=== PATIENT | female | born 1950 | race African-American/Black ===

== ENCOUNTER 2016-05-12 13:11 | Emergency (ER) | payer MEDICARE, OTHER ==
[~2016-05-12] VITALS: Ht 157.5 cm; Wt 76.8 kg
[~2016-05-12 13:11] MED LIST: NOCURR
[2016-05-12 13:36] LABS: GLUCOSE,POINT OF CARE 80 MG/DL (70-110)
[2016-05-12] MEDS ORDERED: MONT10TA24 PO (13:46)
[2016-05-12] MEDS ORDERED: RIVA20TA PO (13:46)
[2016-05-12] MEDS ORDERED: METO25 PO (13:46)
[2016-05-12] MEDS ORDERED: METF500T4 PO (13:46)
[2016-05-12] MEDS ORDERED: NITR.4 SL (13:46)
[2016-05-12] MEDS ORDERED: OXYB5 PO (13:46)
[2016-05-12] MEDS ORDERED: OMEP20CA10 PO (13:46)
[2016-05-12] MEDS ORDERED: SIMV20TA6 PO (13:46)
[2016-05-12 14:15] LABS: BASOPHILS % (AUTO) 0.4 % (0.0-2.0); EOSINOPHILS % (AUTO) 4.3 % (1.0-6.0); HEMOGLOBIN 12.8 g/dL (12.0-16.0); LYMPHOCYTES # (AUTO) 1.7 K/uL (1.0-4.8); LYMPHOCYTES % (AUTO) 30.1 % (22.0-44.0); MEAN CORPUSCULAR HGB CONC 31.1 G/dL (31.0-37.0); MEAN CORPUSCULAR VOLUME 83 fL (80-100); MONOCYTES # (AUTO) 0.7 K/uL (0.1-1.0); MONOCYTES % (AUTO) 12.7 % (2.0-9.0); NEUTROPHILS % (AUTO) 52.5 % (40.0-70.0); PLATELET COUNT (AUTO) 151 K/uL (150-450); RED BLOOD CELL COUNT(AUTO) 4.92 MIL/uL (4.00-5.20); RED CELL DISTRIBUTION WIDTH 16.1 % (11.5-14.5); WHITE BLOOD COUNT (AUTO) 5.7 K/uL (4.5-11.0)
[2016-05-12 14:25] LABS: ANION GAP 9 mmol/L (8-16); CALCIUM, TOTAL 9.8 mg/dL (8.8-10.5); CARBON DIOXIDE 30 mmol/L (22-29); CHLORIDE 100 mmol/L (98-107); CREATININE 0.89 mg/dL (0.60-1.30); GLOMERULAR FILTR. RATE CALC > 60 mL/min (>60); POTASSIUM 4.1 mmol/L (3.5-5.1); SODIUM SERUM 139 mmol/L (136-145); UREA NITROGEN, BLOOD 10 mg/dL (7-18)
[2016-05-12 14:31] LABS: ALANINE AMINOTRANSFERASE 42 U/L (12-78); ALBUMIN 3.6 g/dL (3.4-5.0); ASPARTATE AMINOTRANSFERASE 42 U/L (15-37); BILIRUBIN,TOTAL 0.4 mg/dL (0.1-1.0); TOTAL PROTEIN, SERUM 8.3 g/dL (6.4-8.2)
[2016-05-12 14:38] LABS: B-TYPE NATRIURETIC PEPTIDE 17 pg/mL (0-100)
[2016-05-12 17:33] VITALS: BP 154/86
== END 2016-05-12 18:26 | disposition home or self-care (01) ==
LOC: EMS 13:12
DX: R06.02 Shortness of breath (principal); Z87.891 Personal history of nicotine dependence; Z88.6 Allergy status to analgesic agent
CPT/HCPCS: 82962; 93005; 99285